=== PATIENT | female | born 1945 | race Caucasian/White ===

== ENCOUNTER 2016-10-04 11:43 | Day surgery (SDC) | payer MEDICARE ==
[~2016-10-04] VITALS: Ht 149.9 cm; Wt 68.5 kg
[~2016-10-04 11:43] MED LIST: ASAEC PO; COQ 10 PO; EST42.5C PV; FISH PO; RES15 PO; Sodium Chloride LOK Flush 10 mL Syringe IV PRN; TRAM-69 PO; TRAZ-151 PO; fentaNYL-PF 50 mCg/mL 2 mL Inj IVPUSH PRN
[2016-10-04 12:10] VITALS: BP 128/97; PULSE 93; RESP 16; O2SAT 95
[2016-10-04] MEDS ORDERED: EPLE50TA3 PO (12:13)
[2016-10-04] MEDS ORDERED: AZEL137S11 NS (12:13)
[2016-10-04] MEDS ORDERED: AMLO10TA3 PO (12:13)
[2016-10-04] MEDS: 0.9% Sodium Chloride 1,000 ML IV SCH ×3 (12:22→13:04)
[2016-10-04 13:15] VITALS: BP 96/62; PULSE 74; RESP 16; O2SAT 95
[2016-10-04 13:25] VITALS: BP 93/64; PULSE 70; RESP 16; O2SAT 95
[2016-10-04 13:35] VITALS: BP 87/64; PULSE 67; RESP 16; O2SAT 96
[2016-10-04 13:45] VITALS: BP 115/78; PULSE 64; RESP 16; O2SAT 95
--- NOTE | 2016-10-04 23:16 | ENDO ---
[address] [address] ENDOSCOPY PROCEDURE PATIENT: BANDAR PITTS : 1945 MR#: [id number] ADMIT: 10/04/2016 JOB ID: [id number] PRIMARY PROVIDER: MARILYN Viramontes PROCEDURE: Colonoscopy with cold forceps polypectomy. INDICATIONS: A 71-year-old female with a family history of colon cancer in her dad. EQUIPMENT: PCF-H180-AL. SEDATION: 5 mg Versed and 100 mcg fentanyl. COMPLICATIONS: None identified. BOWEL PREPARATION: Fair, adequate exam. PROCEDURE INFORMATION: After the risks and benefits were explained, written and verbal informed consent was obtained. The patient was brought into the endoscopy suite and placed into the left lateral decubitus position. Sedation was achieved using the above-stated medications with the addition of oxygen via nasal cannula. A digital rectal examination was accomplished. No significant pathology appreciated. The scope was introduced into the rectum and advanced to the cecum as identified by the appendiceal orifice and ileocecal valve. The scope was slowly withdrawn to carefully examine the mucosa for any defects or lesions. Multiple direct views were made through the dentate line for exclusion of pathology. The colon was decompressed, the scope removed from the patient who tolerated the procedure well. FINDINGS: In the sigmoid, there was a small, perhaps 4 mm polyp removed with cold forceps. No other significant pathology was appreciated throughout. ENDOSCOPIC DIAGNOSIS: Diminutive sigmoid polyp. RECOMMENDATIONS: 1. Await histopathology. 2. Repeat colonoscopy in five years.
--- NOTE | 2016-10-05 10:35 | PATH ---
SURGICAL PATHOLOGY Attending Physician:Jeison Huber CASE STATUS: Signed Out PATIENT NAME: BANDAR PITTS PID: [id number] : 1945 DATE COLLECTED:10/04/2016 21:11 SPECIMEN: Colon, Biopsy CLINICAL HISTORY: FAMILY HISTORY OF COLON CANCER COLON POLYP 1). SIGMOID POLYP FINAL DIAGNOSIS: 1.SIGMOID COLON POLYP: TUBULAR ADENOMA. ICD10 D12.5 GROSS DESCRIPTION: The specimen is received in one formalin filled container labeled with the patient's name, sublabeled "sigmoid polyp" and consists of a 0.3 x 0.2 x 0.2 CM portion of tissue which is entirely submitted in one cassette. 10/04/2016 DAC MICRO DESCRIPTION: See diagnosis. ICD-9 CODES: CPT CODES: 1: 67690 Electronically Signed Out Danial Guevara MD [facility] Pathology [facility] [address], [place] [address] Technical component performed at [facility], [facility] [address], [place], [address]
== END 2016-10-04 23:59 | disposition home or self-care (01) ==
LOC: END 11:43
PROVIDERS: ATTEND Internal Medicine Gastroenterology
DX: Z12.11 Encounter for screening for malignant neoplasm of colon (principal); Z80.0 Family history of malignant neoplasm of digestive organs; D12.5 Benign neoplasm of sigmoid colon; I10 Essential (primary) hypertension; M79.7 Fibromyalgia; E26.9 Hyperaldosteronism, unspecified
CPT/HCPCS: 45380; 99153; G0500; J7030